=== PATIENT | male | born 1955 ===

== ENCOUNTER 2020-04-09 12:08 | Emergency (ER) | payer OTHER ==
[~2020-04-09] VITALS: Ht 167.6 cm; Wt 93.0 kg
[2020-04-09] MEDS ORDERED: CARDIZEM CD240 MG (12:34)
[2020-04-09] MEDS ORDERED: SYNJARDY 12.5-1 EACH (12:34)
[2020-04-09] MEDS ORDERED: EFFEXOR XR150 MG (12:34)
[2020-04-09] MEDS ORDERED: COZAAR25 MG (12:35)
[2020-04-09] MEDS ORDERED: ASPIR 8181 MG (12:35)
[2020-04-09] MEDS ORDERED: ZETIA10 MG (12:35)
[2020-04-09] MEDS ORDERED: CRESTOR20 MG (12:35)
[2020-04-09] MEDS ORDERED: PRILOSEC OTC20 MG (12:35)
[2020-04-09] MEDS ORDERED: AMBIEN10 MG (12:40)
== END 2020-04-09 20:43 | disposition home or self-care (01) ==
LOC: ER 12:08
DX: K62.5 Hemorrhage of anus and rectum (principal)